=== PATIENT | male | born 1970 | race Caucasian/White ===

== ENCOUNTER 2024-07-14 08:30 | Emergency (ER) | payer OTHER ==
[~2024-07-14] VITALS: Ht 175.3 cm; Wt 65.8 kg
== END 2024-07-14 09:56 | disposition home or self-care (01) ==
LOC: ER 08:32
DX: G50.0 Trigeminal neuralgia (principal)

== ENCOUNTER → 2024-09-11 | Emergency (ER) | payer OTHER ==
[~2024-09-11] VITALS: Ht 172.7 cm; Wt 65.8 kg
[2024-09-11 08:49] LABS: HEMATOCRIT 52.4 % (39.0-48.0); HEMOGLOBIN 18.1 g/dL (13-16.00); MEAN CELL VOLUME 104.4 fL (80.0-100.00); MEAN CORPUSCULAR HEMOGLOBIN 36.2 pg (27.00-32.0); MEAN CORPUSCULAR HGB CONC 34.7 g/dl (32.0-36.0); RED BLOOD COUNT 5.02 M/uL (4.00-6.00); RED CELL DISTRIBUTION WIDTH 13.2 % (11.5-14.5)
[2024-09-11 08:50] LABS: PLATELET COUNT 129 K/uL (150-450)
[2024-09-11 09:38] LABS: ALBUMIN 3.6 gm/dL (3.4-5.0); BILIRUBIN TOTAL 1.37 mg/dL (0.3-1.2); CALCIUM 8.7 mg/dL (8.5-10.1); CREATININE SERUM 0.92 mg/dL (0.70-1.30); GFR 85.73; MAGNESIUM 1.7 mg/dL (1.8-2.4); PHOSPHOROUS 2.9 mg/dL (2.5-4.9); TOTAL PROTEIN 6.6 gm/dL (6.4-8.2)
[2024-09-11 09:48] LABS: POTASSIUM 2.49 mEq/L (3.5-5.1)
[2024-09-11 09:52] LABS: PH,URINE 6.5 (5.0-8.0); URINE APPEARANCE Clear; URINE BILIRRUBIN Negative (NEGATIVE); URINE BLOOD Negative; URINE COLOR Yellow; URINE GLUCOSE Negative (NEGATIVE); URINE KETONE Negative (NEGATIVE); URINE LEUKOCYTE Negative; URINE NITRATE Negative; URINE PROTEIN Negative (NEGATIVE); URINE UROBILINOGEN 0.2 E.U./dl
[2024-09-11 09:56] LABS: URINE EPITHELIAL CELLS 6.9 uL (0.0-38.8)
[2024-09-11 09:57] LABS: URINE BACTERIA 3.7 uL (0.0-1933); URINE RBC 0.7 uL (0.0-20.8); URINE WBC 1.3 uL (0.0-23.2)
== END | disposition home or self-care (01) ==
LOC: ER 07:48
PROVIDERS: Emergency Medicine
DX: R07.89 Other chest pain (principal)